=== PATIENT | female | born 1970 | race Caucasian/White ===

== ENCOUNTER → 2016-04-09 | Outpatient (CLI) | payer OTHER ==
--- NOTE | 2016-04-25 10:06 | MM ---
Reason for exam: screening (asymptomatic). Last mammogram was performed 1 year and 4 months ago. History: Patient is nulliparous. Family history of breast cancer in maternal aunt at age 50. Physical Findings: A clinical breast exam by your physician is recommended on an annual basis and results should be correlated with mammographic findings. MG Screening Mammo w CAD Bilateral CC and MLO view(s) were taken. Prior study comparison: December 11, 2014, mammogram, performed at [facility]. October 02, 2013, mammogram, performed at [facility]. The breast tissue is heterogeneously dense. This may lower the sensitivity of mammography. Finding: There are few typically benign round calcifications in both breasts. There is no discrete abnormality. ASSESSMENT: Benign, BI-RAD 2 RECOMMENDATION: Routine screening mammogram of both breasts in 1 year.
== END | disposition home or self-care (01) ==
LOC: RADMAMWWP 14:43
PROVIDERS: ATTEND Family Medicine
DX: Z12.31 Encounter for screening mammogram for malignant neoplasm of breast (principal)

== ENCOUNTER 2018-12-24 09:17 | Emergency (ER) | payer OTHER ==
[2018-12-24 09:26] VITALS: TEMP 97.9
[2018-12-24] MEDS ORDERED: SODIUM CHLORIDE 0.9% 1,000 ML IV STA ×2 (09:28)
--- NOTE | 2018-12-24 09:45 | ED ---
Abdominal Pain HPI - General Chief Complaint: Abdominal Pain Stated Complaint: Stomach pain/headaches Time Seen by Provider: 12/24/18 09:28 Source: patient, RN notes reviewed, old records reviewed Mode of arrival: ambulatory Limitations: no limitations - History of Present Illness Initial Comments: 40-year-old female presents for his pharmacy with 1 year epigastric abdominal pain. Patient reports that she's been on omeprazole for chronic S reflux. P atient states that she had lab work done by her primary care doctor, hemoglobin was low at 9.5. She denies any obvious black and tarry stools. Patient reports that her PCP told her that her hemoglobin dropped one point within the past 3 months. She reports that the PCP noticed it's been a steady decline over the past year. She complains of feeling generally fatigued. She states this time she gets headaches. She denies any chest pain at this time. She reports the epigastric pain does go towards her back. - Related Data Home Medications Medication Instructions Recorded Confirmed Atenolol [Tenormin] 25 mg PO DAILY 12/24/18 12/24/18 Cetirizine HCl [Zyrtec] 10 mg PO DAILY 12/24/18 12/24/18 Desog-E.estradiol/E.estradiol 1 tab PO DAILY 12/24/18 12/24/18 [Mircette 28 Day Tablet] Omeprazole 20 mg PO DAILY 12/24/18 12/24/18 Simvastatin [Zocor] 20 mg PO HS 12/24/18 12/24/18 glipiZIDE [Glucotrol] 20 mg PO BID 12/24/18 12/24/18 metFORMIN HCL 1,000 mg PO BID 12/24/18 12/24/18 Previous Rx's Medication Instructions Recorded Sucralfate [Carafate] 1 gm PO ACHS #30 tablet 12/24/18 Allergies Allergy/AdvReac Type Severity Reaction Status Date / Time No Known Allergies Allergy Verified 12/24/18 09:49 Review of Systems ROS Statement: Those systems with pertinent positive or pertinent negative responses have been documented in the HPI. ROS Other: All systems not noted in ROS Statement are negative. Past Medical History Past Medical History: Diabetes Mellitus, GERD/Reflux Additional Past Medical History / Comment(s): Rapid heart beat History of Any Multi-Drug Resistant Organisms: None Reported Past Surgical History: Appendectomy Additional Past Surgical History / Comment(s): Spinal fusion Past Psychological History: No Psychological Hx Reported Smoking Status: Never smoker Past Alcohol Use History: None Reported Past Drug Use History: None Reported General Exam - General Exam Comments Initial Comments: 40-year-old female. Alert and oriented 3. Limitations: no limitations General appearance: alert, in no apparent distress Head exam: Present: atraumatic Eye exam: Present: normal appearance, PERRL, EOMI. Absent: scleral icterus, conjunctival injection, periorbital swelling ENT exam: Present: normal exam, mucous membranes moist Neck exam: Present: normal inspection. Absent: tenderness, meningismus, lymphadenopathy Respiratory exam: Present: normal lung sounds bilaterally. Absent: respiratory distress, wheezes, rales, rhonchi, stridor Cardiovascular Exam: Present: regular rate, normal rhythm, normal heart sounds. Absent: systolic murmur, diastolic murmur, rubs, gallop, clicks GI/Abdominal exam: Present: soft, tenderness (Epigastric tenderness), normal bowel sounds. Absent: distended, guarding, rebound, rigid Extremities exam: Present: normal inspection, full ROM, normal capillary refill. Absent: tenderness, pedal edema, joint swelling, calf tenderness Back exam: Present: normal inspection Neurological exam: Present: alert Psychiatric exam: Present: normal affect, normal mood Skin exam: Present: warm, dry, intact, normal color. Absent: rash Course Vital Signs 12/24/18 09:21 Temperature 97.9 F Pulse Rate 81 Respiratory 18 Rate Blood Pressure 147/88 O2 Sat by Pulse 99 Oximetry Medical Decision Making - Medical Decision Making Patient is 40-year-old female presents emergency room stay of chronic epigastric abdominal pain for the past year. Patient reports that she was sent in for PCP if further evaluation is a hemoglobin has dropped point every 3 months. Patient is starting a proton axis time for gastritis. This time Patient was born this is a very slow drop in hemoglobin. Her occult test was negative. Patient's lab work was otherwise unremarkable. I did discuss we can add Carafate patient's regimen. I discussed with Dr. Suggs Patient can be followed up outpatient only with GI services. I discussed that she should return if there is any jose cruz bloody stool. Patient is agreeable to treatment plan will comply. Return parameters were discussed. - Lab Data Result diagrams: 12/24/18 09:00 12/24/18 09:00 Lab Results 12/24/18 12/24/18 12/24/18 Range/Units 09:00 09:00 09:00 WBC 5.6 (3.8-10.6) k/uL RBC 4.78 (3.80-5.40) m/uL Hgb 9.9 L (11.4-16.0) gm/dL Hct 32.8 L (34.0-46.0) % MCV 68.5 L (80.0-100.0) fL MCH 20.7 L (25.0-35.0) pg MCHC 30.1 L (31.0-37.0) g/dL RDW 15.4 (11.5-15.5) % Plt Count 322 (150-450) k/uL Neutrophils % 62 % Lymphocytes % 27 % Monocytes % 6 % Eosinophils % 2 % Basophils % 1 % Neutrophils # 3.5 (1.3-7.7) k/uL Lymphocytes # 1.5 (1.0-4.8) k/uL Monocytes # 0.4 (0-1.0) k/uL Eosinophils # 0.1 (0-0.7) k/uL Basophils # 0.0 (0-0.2) k/uL Hypochromasia Moderate Microcytosis Marked PT 9.6 (9.0-12.0) sec INR 0.9 (<1.2) APTT 23.8 (22.0-30.0) sec Sodium 140 (137-145) mmol/L Potassium 4.1 (3.5-5.1) mmol/L Chloride 105 (98-107) mmol/L Carbon Dioxide 24 (22-30) mmol/L Anion Gap 11 mmol/L BUN 7 (7-17) mg/dL Creatinine 0.61 (0.52-1.04) mg/dL Est GFR (CKD-EPI)AfAm >90 (>60 ml/min/1.73 sqM) Est GFR (CKD-EPI)NonAf >90 (>60 ml/min/1.73 sqM) Glucose 159 H (74-99) mg/dL Calcium 9.1 (8.4-10.2) mg/dL Total Bilirubin 0.3 (0.2-1.3) mg/dL AST 22 (14-36) U/L ALT 27 (9-52) U/L Alkaline Phosphatase 61 (38-126) U/L Total Protein 7.2 (6.3-8.2) g/dL Albumin 4.2 (3.5-5.0) g/dL Amylase 57 (30-110) U/L Lipase 128 (23-300) U/L Urine Color Urine Appearance (Clear) Urine pH (5.0-8.0) Ur Specific [place] (1.001-1.035) Urine Protein (Negative) Urine Glucose (UA) (Negative) Urine Ketones (Negative) Urine Blood (Negative) Urine Nitrite (Negative) Urine Bilirubin (Negative) Urine Urobilinogen (<2.0) mg/dL Ur Leukocyte Esterase (Negative) Stool Occult Blood (Negative) 12/24/18 12/24/18 Range/Units 09:00 10:30 WBC (3.8-10.6) k/uL RBC (3.80-5.40) m/uL Hgb (11.4-16.0) gm/dL Hct (34.0-46.0) % MCV (80.0-100.0) fL MCH (25.0-35.0) pg MCHC (31.0-37.0) g/dL RDW (11.5-15.5) % Plt Count (150-450) k/uL Neutrophils % % Lymphocytes % % Monocytes % % Eosinophils % % Basophils % % Neutrophils # (1.3-7.7) k/uL Lymphocytes # (1.0-4.8) k/uL Monocytes # (0-1.0) k/uL Eosinophils # (0-0.7) k/uL Basophils # (0-0.2) k/uL Hypochromasia Microcytosis PT (9.0-12.0) sec INR (<1.2) APTT (22.0-30.0) sec Sodium (137-145) mmol/L Potassium (3.5-5.1) mmol/L Chloride (98-107) mmol/L Carbon Dioxide (22-30) mmol/L Anion Gap mmol/L BUN (7-17) mg/dL Creatinine (0.52-1.04) mg/dL Est GFR (CKD-EPI)AfAm (>60 ml/min/1.73 sqM) Est GFR (CKD-EPI)NonAf (>60 ml/min/1.73 sqM) Glucose (74-99) mg/dL Calcium (8.4-10.2) mg/dL Total Bilirubin (0.2-1.3) mg/dL AST (14-36) U/L ALT (9-52) U/L Alkaline Phosphatase (38-126) U/L Total Protein (6.3-8.2) g/dL Albumin (3.5-5.0) g/dL Amylase (30-110) U/L Lipase (23-300) U/L Urine Color Yellow Urine Appearance Clear (Clear) Urine pH 6.0 (5.0-8.0) Ur Specific [place] 1.022 (1.001-1.035) Urine Protein Trace H (Negative) Urine Glucose (UA) Trace H (Negative) Urine Ketones Negative (Negative) Urine Blood Negative (Negative) Urine Nitrite Negative (Negative) Urine Bilirubin Negative (Negative) Urine Urobilinogen <2.0 (<2.0) mg/dL Ur Leukocyte Esterase Negative (Negative) Stool Occult Blood Negative (Negative) 12/24/18 10:58 EKG performed at 10:16 AM shows normal sinus rhythm normal EKG noted. Ventricular rate of 72 bpm. Was 160 ms. She druze 86 ms. QT QTC 380/424 ms. No evidence of ST elevation. - Radiology Data Radiology results: report reviewed KUB shows nonsurgical bowel gas pattern. Disposition Clinical Impression: Epigastric abdominal pain, Gastritis Disposition: HOME SELF-CARE Condition: Good Instructions (If sedation given, give patient instructions): Abdominal Pain (ED) Additional Instructions: Please use medication as discussed. Please follow up with family doctor if symptoms have not improved over the next two days. Please return to the emergency room if your symptoms increase or worsen or for any other concerns. Prescriptions: Sucralfate [Carafate] 1 gm PO ACHS #30 tablet Is patient prescribed a controlled substance at d/c from ED?: No Referrals: [facility],Clinic [Primary Care Provider] - 1-2 days Olamide Delgadillo MD [STAFF PHYSICIAN] - 1-2 days Time of Disposition: 11:58
[2018-12-24] MEDS ORDERED: MORPHINE SULFATE 4 MG/ML SYRINGE IVP STA (10:00)
[2018-12-24] MEDS ORDERED: PANTOPRAZOLE 40 MG/10 ML VIAL IVP STA (10:00)
[2018-12-24 10:06] LABS: Appearance,Urine Clear (Clear); Bilirubin,Urine Negative (Negative); Blood,Urine Negative (Negative); Color,Urine Yellow; Glucose,Urine (UA) Trace (Negative); Ketones,Urine Negative (Negative); Leukocyte Esterase,Urine Negative (Negative); Nitrite,Urine Negative (Negative); Protein,Urine Trace (Negative); Specific Gravity,Urine 1.022 (1.001-1.035); Urobilinogen,Urine <2.0 mg/dL (<2.0)
[2018-12-24 10:13] LABS: Basophils % (A) 1 %; Eosinophils # (A) 0.1 k/uL (0-0.7); Eosinophils % (A) 2 %; HCT 32.8 % (34.0-46.0); HGB 9.9 gm/dL (11.4-16.0); Hypochromasia Moderate; Lymphocytes # (A) 1.5 k/uL (1.0-4.8); Lymphocytes % (A) 27 %; MCH 20.7 pg (25.0-35.0); MCHC 30.1 g/dL (31.0-37.0); MCV 68.5 fL (80.0-100.0); Mean Platelet Volume 7.7; Microcytosis Marked; Monocytes # (A) 0.4 k/uL (0-1.0); Monocytes % (A) 6 %; Neutrophils # (A) 3.5 k/uL (1.3-7.7); Neutrophils % (A) 62 %; Platelet Count 322 k/uL (150-450); RBC 4.78 m/uL (3.80-5.40); RDW 15.4 % (11.5-15.5); WBC 5.6 k/uL (3.8-10.6)
[2018-12-24 10:16] LABS: ALT 27 U/L (9-52); AST 22 U/L (14-36); African American GFR (CKD) >90 (>60 ml/min/1.73 sqM); Albumin 4.2 g/dL (3.5-5.0); Alkaline Phosphatase 61 U/L (38-126); Amylase 57 U/L (30-110); Anion Gap 11 mmol/L; Blood Urea Nitrogen 7 mg/dL (7-17); Calcium 9.1 mg/dL (8.4-10.2); Carbon Dioxide 24 mmol/L (22-30); Chloride 105 mmol/L (98-107); Glucose 159 mg/dL (74-99); Potassium 4.1 mmol/L (3.5-5.1); Sodium 140 mmol/L (137-145); Total Bilirubin 0.3 mg/dL (0.2-1.3); Total Protein 7.2 g/dL (6.3-8.2)
--- NOTE | 2018-12-24 10:18 | XR ---
EXAMINATION TYPE: XR KUB DATE OF EXAM: 12/24/2018 10:13 AM CLINICAL HISTORY: Upper abdominal pain and blood in stool. TECHNIQUE: Two Upright KUB images of the abdomen are obtained. COMPARISON: None. FINDINGS: Scattered gas is seen in non-distended stomach and small bowel loops. Gas and fecal materia l is seen in non-distended colon. There is no visceromegaly, pneumoperitoneum, or abnormal calcificat ion appreciated. Inferior left pelvic phleboliths are seen. Osseous structures are intact. Lung bases are clear. IMPRESSION: Overall nonobstructive bowel gas pattern.
[2018-12-24 10:27] LABS: INR 0.9 (<1.2); Partial Thromboplastin Time 23.8 sec (22.0-30.0); Prothrombin Time 9.6 sec (9.0-12.0)
[2018-12-24 12:40] VITALS: BP 116/71; PULSE 76; RESP 16
== END 2018-12-24 12:35 | disposition home or self-care (01) ==
LOC: EC 09:17
DX: K29.70 Gastritis, unspecified, without bleeding (principal); R71.8 Other abnormality of red blood cells; R53.83 Other fatigue; R51 Headache; E11.9 Type 2 diabetes mellitus without complications; K21.9 Gastro-esophageal reflux disease without esophagitis; Z79.3 Long term (current) use of hormonal contraceptives; Z79.84 Long term (current) use of oral hypoglycemic drugs; Z79.899 Other long term (current) drug therapy; Z90.49 Acquired absence of other specified parts of digestive tract; Z53.20 Procedure and treatment not carried out because of patient's decision for unspecified reasons
CPT/HCPCS: 36415; 93005; 80053; 82150; 83690; 85025; 85610; 85730; 82272; 81003; 74018; 99284; 96374; 96361 ×2; C9113

== ENCOUNTER → 2020-01-05 | Outpatient (CLI) | payer OTHER ==
--- NOTE | 2020-01-05 09:59 | XR ---
EXAMINATION TYPE: XR shoulder complete LT DATE OF EXAM: 01/05/2020 COMPARISON: NONE HISTORY: Pain TECHNIQUE: Shoulder examined in 3 views FINDINGS: The humeral head articulates with the glenoid. Some inferior glenoid spurring appears to be present. The acromio-clavicular junction is normal. No acute fractures or dislocations are evident. A follow up study can be performed 7-10 days from acute trauma for continued pain. IMPRESSION: 1. No acute osseous abnormality evident. 2. Some mild degenerative change inferior glenoid is present
== END | disposition home or self-care (01) ==
LOC: RADXRMAIN 09:41
PROVIDERS: ATTEND Emergency Medicine
DX: M19.012 Primary osteoarthritis, left shoulder (principal)

== ENCOUNTER → 2020-01-27 | Outpatient (CLI) | payer OTHER ==
--- NOTE | 2020-01-27 20:55 | MR ---
EXAMINATION TYPE: MR shoulder LT wo con DATE OF EXAM: 01/27/2020 COMPARISON: None HISTORY: Lt shoulder pain/injury Technique: Multiplanar, multiecho imaging on a 3.0 Shaina magnet is performed through the shoulder. Findings: Long head of the biceps tendon is within the bicipital groove. No significant joint effusion is evident. There may be some minimal subacromial fluid adjacent to th e supraspinatus tendon. Glenoid labrum as visualized on this noncontrast study appears intact. Rotator cuff tendons are evaluated. No through and through tear or tendon retraction is evident. Mus sabra signal is normal without fatty infiltration. The acromioclavicular junction is normal. There is downward sloping acromion which can contribute to impingement syndrome. IMPRESSIONS: 1. Moderate tendinosis supraspinatus tendon. No perforation or complete tear is identified. No retrac tion. 2. Osteoarthritic degenerative change glenohumeral junction
== END | disposition home or self-care (01) ==
LOC: RADMRIMAIN 19:19
PROVIDERS: ATTEND Emergency Medicine
DX: M19.012 Primary osteoarthritis, left shoulder (principal); M75.82 Other shoulder lesions, left shoulder; S46.812D Strain of other muscles, fascia and tendons at shoulder and upper arm level, left arm, subsequent encounter

== ENCOUNTER 2022-09-21 07:31 | Day surgery (SDC) | payer OTHER ==
--- NOTE | 2022-09-20 09:50 | P.HPOR ---
History of Present Illness H&P Date: 09/20/22 Chief Complaint: Right shoulder pain The patient is a 51-year-old [id number]-ypgazybe female who presents with right shoulder pain worsening over the past 6 months. She is having pain with any attempted overhead use and at night. She's tried therapy in addition of medications without significant relief. She has daily pain that limits her. Review of Systems Negative except as in HPI Past Medical History Past Medical History: Diabetes Mellitus, GERD/Reflux, Sleep Apnea/CPAP/BIPAP Additional Past Medical History / Comment(s): "Rapid heart beat ", C-Pap machine, optic migraines, Anemia, chronic diarrhea, abd. pain., Hx of Right lung wedge resection (lung infection with spot on lung-possibley caused by bird feathers.) History of Any Multi-Drug Resistant Organisms: None Reported Past Surgical History: Appendectomy, Back Surgery Additional Past Surgical History / Comment(s): Spinal fusion, shoulder manipulation under anesthesia, Right Lung Wedge Resection.wisdom teeth extractions under general anesthesia Past Anesthesia/Blood Transfusion Reactions: No Reported Reaction, Motion Sickness Smoking Status: Never smoker - Past Family History Mother Family Medical History: Cancer Additional Family Medical History / Comment(s): ovarian cancer Medications and Allergies Home Medications Medication Instructions Recorded Confirmed Type Cetirizine HCl [Zyrtec] 10 mg PO DAILY 12/24/18 09/18/22 History Omeprazole 20 mg PO BID 12/24/18 09/18/22 History atenoloL [Tenormin] 25 mg PO DAILY 12/24/18 09/18/22 History desog-e.estradioL/e.estradioL 1 tab PO DAILY 12/24/18 09/18/22 History [Mircette 28 Day Tablet] glipiZIDE [Glucotrol] 20 mg PO BID 12/24/18 09/18/22 History metFORMIN HCL [Glucophage] 1,000 mg PO BID 12/24/18 09/18/22 History Simvastatin [Zocor] 10 mg PO DAILY 03/31/19 09/18/22 History Eyevit(Unk) 1 tab PO DAILY 09/18/22 09/18/22 History Jardiance(Unk) 1 tab PO DAILY 09/18/22 09/18/22 History Mobic(Unk) 1 tab PO DAILY 09/18/22 09/18/22 History Multivitamins, Thera [Multivitamin 1 tab PO DAILY 09/18/22 09/18/22 History (formulary)] Allergies Allergy/AdvReac Type Severity Reaction Status Date / Time morphine Allergy Vomiting Verified 09/18/22 14:43 Physical Examination - Shoulder right Tenderness with palpation: anterior Pain: with abduction, with forward flexion ROM: abduction: 140 degrees (150 passively) ROM: internal rotation: lower lumbar ROM: external rotation: 50 degrees Crepitus with motion: Yes Strength: abduction: 5/5 Strength: external rotation: 5/5 Tests: internal impingement tests: positive, external impingment tests: positive Results The patient is a well-developed well-nourished female a proximal A5 foot 4, 165 pounds of mesomorphic habitus. HEENT exam is nonfocal, neck is supple. On the right shoulder she is tender about the anterior subacromial space. Moderate crepitus is noted. Impingement test, Neer test, and speed tests are positive. Her distal neurovascular appears intact in the right upper extremity. - Diagnostic results Shoulder MRI: image reviewed (Right shoulder MRI is reviewed and shows a partial thickness tear involving the subscapularis. Capsulitis is noted. Acromioclavicular joint arthritis is noted.) Assessment and Plan Assessment: Right shoulder impingement/partial thickness rotator cuff tear Right shoulder adhesive capsulitis/synovitis Plan: I talked with the patient regarding her condition along with treatment options. At this point she remains quite symptoms may despite attempted conservative measures. After a thorough discussion she opts to proceed with surgery. We'll plan to proceed with right shoulder arthroscopic evaluation with probable s ubacromial decompression, rotator cuff debridement, manipulation and anesthesia along with synovectomy. Risks and benefits were discussed at length in layman's terms. We will likely perform as an outpatient procedure.
[2022-09-21] MEDS ORDERED: SCOPOLAMINE 1 MG/72 HR PATCH TRANSDERM ONE (07:47)
[2022-09-21] MEDS ORDERED: fentaNYL (PF) 50 MCG/ML 2 ML AMP IV PRN (07:47)
[2022-09-21] MEDS ORDERED: ONDANSETRON 4 MG/2 ML VIAL IVP ONE (07:47)
[2022-09-21] MEDS ORDERED: MIDAZOLAM 2 MG/2 ML VIAL IV PRN (07:47)
[2022-09-21] MEDS ORDERED: DEXAMETHASONE SOD PHOSPHATE 4 MG/ML 1 ML VIAL IV ONE (07:47)
[2022-09-21] MEDS ORDERED: LACTATED RINGERS 1,000 ML IV SCH (07:47)
[2022-09-21 08:13] VITALS: TEMP 97.9
[2022-09-21 08:16] LABS: Glucose,Whole Blood 141 mg/dL (70-110)
[2022-09-21] MEDS ORDERED: SUCCINYLCHOLINE CHLORIDE 200 MG/10 ML VIAL IV ONE (09:49)
[2022-09-21] MEDS ORDERED: KETOROLAC 15 MG/ML 1 ML VIAL ONE (09:49)
[2022-09-21] MEDS ORDERED: PROPOFOL 10 MG/ML 20 ML VIAL IV ONE (09:49)
[2022-09-21] MEDS ORDERED: MIDAZOLAM 2 MG/2 ML VIAL ONE (09:49)
[2022-09-21] MEDS ORDERED: LIDOCAINE 4% LTA KIT (4 ML) TOPICAL ONE (09:49)
[2022-09-21] MEDS ORDERED: fentaNYL (PF) 50 MCG/ML 2 ML AMP ONE (09:49)
[2022-09-21] MEDS ORDERED: KETAMINE 10 MG/ML 20 ML VIAL ONE (09:49)
[2022-09-21] MEDS ORDERED: LIDOCAINE 2% INJ 20 MG/ML (2 ML VIAL) ONE (09:49)
--- NOTE | 2022-09-21 10:53 | P.OP ---
Date of Procedure: 09/21/22 Preoperative Diagnosis: Right shoulder impingement/partial thickness rotator cuff tear Postoperative Diagnosis: Same in addition to type I superior labral tear Procedure(s) Performed: Right shoulder arthroscopic subacromial decompression/rotator cuff debri edilma/superior labral debridement Anesthesia: alicia PATTON Surgeon: Ismael Heller Typesetting Machine Tender #1: Yony Jj Estimated Blood Loss (ml): 10 Pathology: none sent Condition: stable Disposition: PACU Indications for Procedure: The patient is a 52-year-old female who presents with progressive right shoulder pain despite conservative measures. A discussion of the risks and benefits of operative intervention versus continued conservative measures was made with patient. She opted to proceed with surgery. Operative risks to include infection, neurovascular injury, development of blood clots, possible recurrence of stiffness and need for subsequent procedures was discussed. Informed consent was obtained. Operative Findings: As below Description of Procedure: The patient was brought to the operating room, and after induction of general anesthesia was placed in a beachchair position. A preoperative interscalene block was placed for postoperative analgesia. I examined the right shoulder. There was mild block to passive forward elevation. Gentle manipulation was performed to obtain full motion. Full external rotation was noted. The right upper extremity was prepped and draped in normal fashion. The bony outlines the acromion, distal clavicle, and coracoid process were outlined with a skin marker. The glenohumeral joint was inflated with 50 mL of saline utilizing a spinal needle from posterior approach. A posterior portal was made through a 5 mm skin incision 1 cm medial and inferior to the posterior lateral border time. A blunt trocar was used to easily into the joint. Diagnostic arthroscopy was performed. An anterior portal was made just lateral to the coracoid process entering the joint above the subscapularis tendon. The subscapularis tendon appeared to be intact. Anterior labrum was intact. The inferior recess was inspected. The posterior labrum was intact. The biceps appeared to be intact. There was a type I tear involving the superior labrum. This debrided back to stable base with a motorized shaver. The remaining anchor was intact and was stable. On inspection the rotator cuff it was intact on the articular surface. The arthroscope was placed into the subacromial space. A lateral portal was made 2 centimeters inferior to the anterior lateral border of the acromion. The rotator cuff was then mobilized with a traction suture. This was then easily brought back to the greater tuberosity. The soft tissue on the undersurface of the acromion was debrided with a motorized shaver and electrocautery clearly defining the anterior medial and lateral borders as well as the distal clavicle. An anterior inferior acromioplasty was performed with a motorized basim starting anterolateral, then extending this posteriorly, then extending this medially. I converted to a flat acromion and this was verified in the posterior and lateral viewing portals. The rotator cuff was inspected on the bursal surface. There was fraying of the supraspinatus. This was debrided back to a stable base with a motorized shaver. The remaining rotator cuff appeared to be stable and intact. The arthroscope was then removed. The portals were closed with simple 3-0 nylon sutures. A sterile dressing was applied in addition to a sling. The patient was then awoken from general anesthesia and transferred to recovery room in good condition. Blood loss was estimated at 10 mL. No complications were incurred. Sponge and needle counts were correct in the case. Yony NATION assisted and the major components of the case to include arm positioning, debridement and decompression.
[2022-09-21] MEDS ORDERED: HYDROmorphone 0.5 MG/0.5 ML SYRINGE IVP ONE (11:22)
[2022-09-21] MEDS ORDERED: LACTATED RINGERS 1,000 ML IV ONE (11:48)
[2022-09-21] MEDS ORDERED: ALBUTEROL NEBULIZED 2.5 MG/3 ML INHALATION STA (12:08)
[2022-09-21 12:20] VITALS: RESP 16
[2022-09-21 12:26] LABS: Glucose,Whole Blood 167 mg/dL (70-110)
[2022-09-21 12:35] VITALS: BP 128/73; PULSE 91
== END 2022-09-21 13:00 | disposition home or self-care (01) ==
LOC: OR 07:31
PROVIDERS: ATTEND Orthopaedic Surgery
DX: S43.431A Superior glenoid labrum lesion of right shoulder, initial encounter (principal); M75.41 Impingement syndrome of right shoulder; M75.101 Unspecified rotator cuff tear or rupture of right shoulder, not specified as traumatic; E11.9 Type 2 diabetes mellitus without complications; K21.9 Gastro-esophageal reflux disease without esophagitis; G47.33 Obstructive sleep apnea (adult) (pediatric); Z90.49 Acquired absence of other specified parts of digestive tract; Z98.1 Arthrodesis status; Z79.1 Long term (current) use of non-steroidal anti-inflammatories (NSAID); Z79.84 Long term (current) use of oral hypoglycemic drugs; Z79.899 Other long term (current) drug therapy; X58.XXXA Exposure to other specified factors, initial encounter
CPT/HCPCS: 94640; 81025; 29822; 29826; J2250; J0330; J1100; J0690; J2405; J3010; J1885; J2704; J1170; J2001

== ENCOUNTER 2024-01-31 11:43 | Emergency (ER) | payer OTHER ==
--- NOTE | 2024-01-31 12:10 | ED ---
Abdominal Pain HPI - General Chief Complaint: Abdominal Pain Stated Complaint: NV, abd pain Time Seen by Provider: 01/31/24 12:00 Source: patient, RN notes reviewed Mode of arrival: ambulatory Limitations: no limitations - History of Present Illness Initial Comments: This is a 53-year-old female with a history of diabetes presenting to the emergency department with referral from urgent care for complaint of epigastric and right upper quadrant abdominal pain that has been intermittent over the past 3 days. Patient was referred to emergency department to rule out potential acute cholecystitis. Patient has been experiencing nausea. Previous surgical history of appendectomy. Denies fevers or chills or urinary symptoms. - Related Data Home Medications Medication Instructions Recorded Confirmed Cetirizine HCl [Zyrtec] 10 mg PO DAILY 12/24/18 09/18/22 Omeprazole 20 mg PO BID 12/24/18 09/18/22 atenoloL [Tenormin] 25 mg PO DAILY 12/24/18 09/18/22 desog-e.estradioL/e.estradioL 1 tab PO DAILY 12/24/18 09/18/22 [Mircette 28 Day Tablet] glipiZIDE [Glucotrol] 20 mg PO BID 12/24/18 09/18/22 metFORMIN HCL [Glucophage] 1,000 mg PO BID 12/24/18 09/18/22 Simvastatin [Zocor] 10 mg PO DAILY 03/31/19 09/18/22 Eyevit(Unk) 1 tab PO DAILY 09/18/22 09/18/22 Jardiance(Unk) 1 tab PO DAILY 09/18/22 09/18/22 Mobic(Unk) 1 tab PO DAILY 09/18/22 09/18/22 Multivitamins, Thera [Multivitamin 1 tab PO DAILY 09/18/22 09/18/22 (formulary)] Previous Rx's Medication Instructions Recorded HYDROcodone/APAP 7.5-325MG [[place] 1 tab PO Q6HR PRN #28 tab 09/21/22 7.5-325] Allergies Allergy/AdvReac Type Severity Reaction Status Date / Time morphine Allergy Vomiting Verified 01/31/24 11:50 Review of Systems ROS Statement: Those systems with pertinent positive or pertinent negative responses have been documented in the HPI. ROS Other: All systems not noted in ROS Statement are negative. Past Medical History Past Medical History: Diabetes Mellitus, GERD/Reflux, Sleep Apnea/CPAP/BIPAP Additional Past Medical History / Comment(s): "Rapid heart beat ", C-Pap machine, optic migraines, Anemia, chronic diarrhea, abd. pain., Hx of Right lung wedge resection (lung infection with spot on lung-possibley caused by bird feathers.) History of Any Multi-Drug Resistant Organisms: None Reported Past Surgical History: Appendectomy, Back Surgery Additional Past Surgical History / Comment(s): Spinal fusion, shoulder manip ulation under anesthesia, Right Lung Wedge Resection.wisdom teeth extractions under general anesthesia Past Anesthesia/Blood Transfusion Reactions: No Reported Reaction, Motion Sickness Past Psychological History: No Psychological Hx Reported Smoking Status: Never smoker Past Alcohol Use History: None Reported Past Drug Use History: None Reported - Past Family History Mother Family Medical History: Cancer Additional Family Medical History / Comment(s): ovarian cancer General Exam Limitations: no limitations Course Vital Signs 01/31/24 01/31/24 01/31/24 11:47 14:04 15:11 Temperature 98.3 F 98.8 F 98.6 F Pulse Rate 91 89 79 Respiratory 16 15 16 Rate Blood Pressure 171/84 136/81 148/85 O2 Sat by Pulse 98 99 96 Oximetry Medical Decision Making - Medical Decision Making Was pt. sent in by a medical professional or institution ([facility], COMMUNITY ORGANIZATION WORKER, urgent care, hospital, or residential...) When possible be specific @ -Was advised by urgent care to report to the emergency department for further evaluation of right upper quadrant abdominal pain and nausea Did you speak to anyone other than the patient for history (EMS, parent, family, police, friend...)? What history was obtained from this source @ -No Did you review nursing and triage notes (agree or disagree)? Why? @ -I reviewed and agree with nursing and triage notes Were old charts reviewed (outside hosp., previous admission, EMS record, old EKG, old radiological studies, urgent care reports/EKG's, residential records)? Report findings @ -No old charts were reviewed Differential Diagnosis (chest pain, altered mental status, abdominal pain women, abdominal pain men, vaginal bleeding, weakness, fever, dyspnea, syncope, headache, dizziness, GI bleed, back pain, seizure, CVA, palpatations, mental health, musculoskeletal)? @ -Differential Abdominal Pain Women: Appendicitis, Cholecystitis, diverticulosis, ischemic bowel, pancreatitis, hepatitis, UTI, gastroenteritis, AAA, incarcerated hernia, bowel obstruction, constipation, inflammatory bowel, hepatitis, peptic ulcer disease, splenic infarction, perforated viscus, vulvitis, ovarian torsion, PID, kidney stone, placenta abruption, this is not meant to be an all-inclusive list EKG interpreted by me (3pts min.). @ -None X-rays interpreted by me (1pt min.). @ -None done CT interpreted by me (1pt min.). @ -None done U/S interpreted by me (1pt. min.). @ -Ultrasound of the gallbladder reveals no evidence for acute process with mild hepatomegaly and diffuse fatty infiltration What testing was considered but not performed or refused? (CT, X-rays, U/S, labs)? Why? @ -None What meds were considered but not given or refused? Why? @ -None Did you discuss the management of the patient with other professionals (professionals i.e. , PA, COMMUNITY ORGANIZATION WORKER, lab, RT, psych nurse, social media director, ordnance keeper, teacher, ship's electronic warfare officer, correctional case manager)? Give summary @ -No Was smoking cessation discussed for >3mins.? @ -No Was critical care preformed (if so, how long)? @ -No Were there social determinants of health that impacted care today? How? (Homelessness, low income, unemployed, alcoholism, drug addiction, transportation, low edu. Level, literacy, decrease access to med. care, shelter, rehab)? @ -No Was there de-escalation of care discussed even if they declined (Discuss DNR or withdrawal of care, Hospice)? DNR status @ -No What co-morbidities impacted this encounter? (DM, HTN, Smoking, COPD, CAD, C ancer, CVA, ARF, Chemo, Hep., AIDS, mental health diagnosis, sleep apnea, morbid obesity)? @ -None Was patient admitted / discharged? Hospital course, mention meds given and route, prescriptions, significant lab abnormalities, going to OR and other pertinent info. @ -Discharge. 53-year-old female with epigastric and right upper quadrant abdominal pain. My evaluation patient is resting company no signs acute distress. She is originally evaluated in the emergency department waiting room where ultrasounds were in addition to laboratory studies. Check of vitals within normal limits. Laboratory studies including CBC, CMP, pancreatic enzymes within normal limits. Ultrasound of the abdomen unremarkable for acute process. Recommend that patient follows up with primary care provider for further evaluation of unspecified abdominal pain. All questions have been answered at bedside and strict return parameters discussed with the patient she is verbalized understanding. Patient is also provided with dose of Toradol emergency department that has helped alleviate symptoms. Discussed with Dr. Rinaldi Undiagnosed new problem with uncertain prognosis? @ -No Drug Therapy requiring intensive monitoring for toxicity (Heparin, Nitro, Insulin, Cardizem)? @ -No Were any procedures done? @ -No Diagnosis/symptom? @ -Unspecified abdominal pain Acute, or Chronic, or Acute on Chronic? @ -Acute Uncomplicated (without systemic symptoms) or Complicated (systemic symptoms)? @ -Uncomplicated Side effects of treatment? @ -No Exacerbation, Progression, or Severe Exacerbation? @ -No Poses a threat to life or bodily function? How? (Chest pain, [place], [place], pneumonia, PE, COPD, DKA, ARF, appy, cholecystitis, CVA, Diverticulitis, Homicidal, Suicidal, threat to staff... and all critical care pts) @ -No - Lab Data Result diagrams: 01/31/24 13:07 01/31/24 13:07 Lab Results 01/31/24 01/31/24 01/31/24 Range/Units 13:07 13:07 13:07 WBC 8.0 (3.8-10.6) k/uL RBC 5.47 H (3.80-5.40) m/uL Hgb 15.2 (11.4-16.0) gm/dL Hct 46.4 H (34.0-46.0) % MCV 84.7 (80.0-100.0) fL MCH 27.8 (25.0-35.0) pg MCHC 32.8 (31.0-37.0) g/dL RDW 14.0 (11.5-15.5) % Plt Count 265 (150-450) k/uL MPV 8.9 Neutrophils % 65 % Lymphocytes % 24 % Monocytes % 7 % Eosinophils % 2 % Basophils % 0 % Neutrophils # 5.2 (1.3-7.7) k/uL Lymphocytes # 1.9 (1.0-4.8) k/uL Monocytes # 0.6 (0-1.0) k/uL Eosinophils # 0.1 (0-0.7) k/uL Basophils # 0.0 (0-0.2) k/uL Sodium 140 (137-145) mmol/L Potassium 4.3 (3.5-5.1) mmol/L Chloride 105 (98-107) mmol/L Carbon Dioxide 27 (22-30) mmol/L Anion Gap 8 mmol/L BUN 7 (7-17) mg/dL Creatinine 0.56 (0.52-1.04) mg/dL Est GFR (CKD-EPI)AfAm >90 (>60 ml/min/1.73 sqM) Est GFR (CKD-EPI)NonAf >90 (>60 ml/min/1.73 sqM) Glucose 167 H (74-99) mg/dL Plasma Lactic Acid Darren 2.0 (0.7-2.0) mmol/L Calcium 9.2 (8.4-10.2) mg/dL Total Bilirubin 0.5 (0.2-1.3) mg/dL AST 36 (14-36) U/L ALT 47 H (4-34) U/L Alkaline Phosphatase 54 (38-126) U/L Total Protein 7.2 (6.3-8.2) g/dL Albumin 4.6 (3.5-5.0) g/dL Amylase 50 (30-110) U/L Lipase 136 (23-300) U/L Disposition Clinical Impression: Abdominal pain Disposition: HOME SELF-CARE Condition: Good Instructions (If sedation given, give patient instructions): Abdominal Pain (ED) Additional Instructions: Please return to the Emergency Department if symptoms worsen or any other concerns. Is patient prescribed a controlled substance at d/c from ED?: No Referrals: [facility],Clinic [Primary Care Provider] - 1-2 days Time of Disposition: 14:01
--- NOTE | 2024-01-31 12:35 | US ---
INDICATION: Patient age:Female; 53 years old; Reason for study: RUQ pain, N; PHH. COMPARISON: None.. TECHNIQUE: Multiple grayscale and color doppler ultrasound images of the right upper abdomen obtained utilizing transabdominal imaging. FINDINGS: PANCREAS: The visualized portions of the pancreas are unremarkable. LIVER: The liver demonstrates hyperechoic echotexture, which is difficult to penetrate sonographically. This ultrasound appearance also degrades sensitivity for the detection of masses. However, there is no gr oss evidence of dilated ducts, cystic structures, or solid mass. Mildly enlarged measuring 18.5 cm i n length. GALLBLADDER: The gallbladder is without evidence of wall thickening, pericholecystic fluid, or cholelithiasis. The common duct measures approximately 4 mm. Per patrol driver, the sonographic Hedrick's sign was negative . RIGHT KIDNEY: The right kidney measures 11.3 x 5.0 x 6.3 cm, without evidence of hydronephrosis, shadowing calculus , or contour deforming solid mass. Renal parenchymal echogenicity is within normal limits. IMPRESSION: 1. No ultrasound evidence for acute process. 2. Mild hepatomegaly with diffuse fatty infiltration. [facility], , 01/31/2024 12:33 PM
[2024-01-31 13:13] LABS: Basophils % (A) 0 %; Eosinophils # (A) 0.1 k/uL (0-0.7); Eosinophils % (A) 2 %; HCT 46.4 % (34.0-46.0); HGB 15.2 gm/dL (11.4-16.0); Lymphocytes # (A) 1.9 k/uL (1.0-4.8); Lymphocytes % (A) 24 %; MCH 27.8 pg (25.0-35.0); MCHC 32.8 g/dL (31.0-37.0); MCV 84.7 fL (80.0-100.0); Mean Platelet Volume 8.9; Monocytes # (A) 0.6 k/uL (0-1.0); Monocytes % (A) 7 %; Neutrophils # (A) 5.2 k/uL (1.3-7.7); Neutrophils % (A) 65 %; Platelet Count 265 k/uL (150-450); RBC 5.47 m/uL (3.80-5.40)
[2024-01-31 13:30] LABS: ALT 47 U/L (4-34); AST 36 U/L (14-36); African American GFR (CKD) >90 (>60 ml/min/1.73 sqM); Albumin 4.6 g/dL (3.5-5.0); Alkaline Phosphatase 54 U/L (38-126); Amylase 50 U/L (30-110); Anion Gap 8 mmol/L; Calcium 9.2 mg/dL (8.4-10.2); Carbon Dioxide 27 mmol/L (22-30); Chloride 105 mmol/L (98-107); Glucose 167 mg/dL (74-99); Lipase 136 U/L (23-300); Non-African American GFR(CKD) >90 (>60 ml/min/1.73 sqM); Potassium 4.3 mmol/L (3.5-5.1); Sodium 140 mmol/L (137-145); Total Bilirubin 0.5 mg/dL (0.2-1.3); Total Protein 7.2 g/dL (6.3-8.2)
[2024-01-31 13:46] LABS: Blood Urea Nitrogen 7 mg/dL (7-17)
[2024-01-31] MEDS: PANTOPRAZOLE 40 MG/10 ML VIAL IVP STA (14:56)
[2024-01-31] MEDS: KETOROLAC 15 MG/ML 1 ML VIAL IVP STA (14:56)
[2024-01-31 15:13] VITALS: BP 148/85; PULSE 79; RESP 16; TEMP 98.6
== END 2024-01-31 15:13 | disposition home or self-care (01) ==
LOC: EC 11:43
DX: R10.11 Right upper quadrant pain (principal); Z88.5 Allergy status to narcotic agent
CPT/HCPCS: 36415; 80053; 82150; 83605; 83690; 85025; 76705; 99284; 96374; 96375; J1885; J2470